=== PATIENT | female | born 1950 | race Two or more races ===

== ENCOUNTER 2019-08-17 22:55 | Inpatient (IN) | payer OTHER, MEDICARE ==
[~2019-08-17] VITALS: Ht 152.4 cm; Wt 68.9 kg
--- NOTE | 2019-08-18 00:55 | NUR ---
PT AAOX4. AMBULATORY WITH STEADY GAIT. PT C/O HIGH BPX3 DAYS. -CP, -SOB, -PAIN. PLACED ON MONITOR AND PULSE OX. NO ACUTE DISTRESS NOTED. MD AT BEDSIDE FOR EVAL.
[2019-08-18 01:16] LABS: BASOPHILS # (AUTO) 0.1 /CMM (0.0-0.2); BASOPHILS % (AUTO) 0.8 % (0.0-2.0); EOSINOPHILS % (AUTO) 2.1 % (0.0-6.0); HEMATOCRIT 41 % (33-45); HEMOGLOBIN 13.7 g/dL (11.5-14.8); LYMPHOCYTES # (AUTO) 1.3 /CMM (0.8-4.8); MEAN CORPUSCULAR HGB CONC 34 g/dl (31.0-36.0); MEAN CORPUSCULAR VOLUME 89 fL (82-100); MONOCYTES # (AUTO) 0.5 /CMM (0.1-1.30); MONOCYTES % (AUTO) 7.4 % (2.0-12.0); NEUTROPHILS # (AUTO) 4.4 /CMM (1.8-8.9); NEUTROPHILS % (AUTO) 69.7 % (43.0-81.0); PLATELET COUNT (AUTO) 227 /CMM (150-450); RED BLOOD CELL COUNT(AUTO) 4.61 MIL/uL (4.0-5.2); WHITE BLOOD COUNT (AUTO) 6.3 K/uL (4.3-11.0)
[2019-08-18 01:26] LABS: CALCIUM, SERUM 9.3 mg/dL (8.5-10.1); CREATININE 0.8 mg/dL (0.6-1.3); POTASSIUM 4.2 mmol/L (3.5-5.1)
[2019-08-18] MEDS ORDERED: ASPIRIN 325 MG TABLET ONE (01:48)
[2019-08-18] MEDS ORDERED: ASPIRIN 325 MG TABLET PO ONE (02:00)
--- NOTE | 2019-08-18 02:46 | NUR ---
PT RESTING COMFORTABLY. VSS.
[2019-08-18] MEDS ORDERED: hydrALAZINE HCL IV 20 MG VIAL ONE (02:48)
[2019-08-18] MEDS ORDERED: hydrALAZINE HCL IV 20 MG VIAL IV PRN (03:00)
[2019-08-18] MEDS ORDERED: OLME40TA12 PO (03:17)
[2019-08-18] MEDS ORDERED: ROSU5TAB PO (03:17)
[2019-08-18] MEDS ORDERED: AMLO10TA7 PO (03:17)
[2019-08-18] MEDS ORDERED: LEVO75TA7 PO (03:17)
--- NOTE | 2019-08-18 03:24 | NUR ---
REPORT GIVEN TO WILLIAM LOERA FOR GE
[2019-08-18] MEDS ORDERED: ONDANSETRON HCL/PF 4 MG/2 ML VIAL IVP PRN (03:30)
[2019-08-18] MEDS ORDERED: Z GUARD REMEDY 2 OZ OINT TP PRN (03:30)
[2019-08-18] MEDS ORDERED: hydrALAZINE HCL 25 MG TABLET PO PRN (03:30)
[2019-08-18] MEDS ORDERED: ACETAMINOPHEN 325 MG TABLET PO PRN (03:30)
--- NOTE | 2019-08-18 04:40 | NUR ---
PT TRANSFERED PER ACLS PROTOCOL.
[2019-08-18 04:50] VITALS: BP 147/96
--- NOTE | 2019-08-18 04:50 | NUR ---
RIM TURNING FINISHERCORPORATE RECRUITER NOTE RECEIVED PATIENT VIA GURNEY. AMBULATED TO BED, STEADY GAIT. A/OX4, CITIZEN OF [place] SPEAKING, ABLE TO MAKE BASIC NEEDS KNOWN. TOLERATING ROOM AIR. RESPIRATIONS ARE EVEN AND UNLABORED. NO S/S SOB NOTED. DENIES PAIN AT THIS TIME. EXTERNAL TELE MONITOR READS SR HR 75. IN NO APPARENT DISTRESS. IV ACCESS IN RFA #20 PATENT AND SALINE LOCKED, PATIENT STATES IT HURT, WILL INSERT NEW IV. INITIAL PHYSICAL ASSESSMENT COMPLETED AT THIS TIME. SKIN ASSESSMENT COMPLETED, SKIN IS INTACT. BELONGINGS LIST AND VITAL SIGNS TAKEN BY SCHOOL SPEECH LANGUAGE PATHOLOGIST. BED IS LOW AND LOCKED, HOB ELEVATED IN SEMI FOWLERS, SIDE RAILS UP X2. CALL LIGHT WITHIN REACH. FAMILY T BESIDE. WILL CONTINUE TO MONITOR.
[2019-08-18 06:02] VITALS: BP 147/96
[2019-08-18] MEDS: ENOXAPARIN SODIUM 40 MG/0.4 ML DISP.SYRIN SQ SCH (06:07)
[2019-08-18] MEDS: VALSARTAN 80 MG TABLET PO SCH ×2 (06:22→21:16)
--- NOTE | 2019-08-18 06:22 | NUR ---
SADDLE STITCH OPERATOR NOTE ADMINISTERED 0330 MEDICATION FOR 160MG VALSARTAN. LAST ADMINISTRATION D/T PATIENT DID NOT COME FROM ER UNTIL 449. WILL CONTINUE TO MONITOR.
--- NOTE | 2019-08-18 07:55 | NUR ---
CABLE REPAIRER OPENING NOTES RECEIVED PATIENT ON BED, A/O4 AND RESPONSIVE TO ALL STIMULI. DAUGHTER ON BEDSIDE. RESPIRATION EVEN AND NON LABORED WITH NO ACUTE RESPIRATORY DISTRESS, DENIES CHEST PAIN, SOB, LIGHTHEADEDNESS, FATIGUE. ABD SOFT AND NON DISTENDED WITH ACTIVE BOWEL SOUNDS, NO EDEMA NOTED. SKIN WARM TO TOUCH AND DRY. DENIES PAIN AND DISCOMFORT. IV SITE AT RIGHT HAND PATENT IN FLUSHING. TELE MONITOR SHOWS SINUS RHYTHM 75. ALL CONCERNS ATTENDED AT THIS TIME. CALL LIGHT WITHIN REACH. WILL CONTINUE TO EVALUATE CARE.
--- NOTE | 2019-08-18 07:58 | NUR ---
EMPLOYMENT LAW ATTORNEY CLOSING NOTE PATIENT IN BED. A/OX4, [place] SPEAKING, ABLE TO MAKE BASIC NEEDS KNOWN. TOLERATING ROOM AIR. RESPIRATIONS ARE EVEN AND UNLABORED. NO SOB NOTED. NO C/O PAIN. EXTERNAL TELE MONITOR READS SR HR 75. NO DISTRESS NOTED. IV ACCESS MAINTAINED IN RIGHT HAND #22 PATENT AND SALINE LOCKED. BED IS LOW AND LOCKED, HOB ELEVATED IN SEMI FOWLERS, SIDE RAILS UP X2. CALL LIGHT WITHIN REACH. FAMILY AT BEDSIDE. WILL ENDORSE TO NEXT SHIFT.
[2019-08-18 08:00] VITALS: BP 143/83
[2019-08-18] MEDS: ASPIRIN EC 81 MG TABLET.DR PO SCH (09:02)
[2019-08-18] MEDS: LEVOTHYROXINE SODIUM 75 MCG TABLET PO SCH (09:02)
[2019-08-18] MEDS: AMLODIPINE BESYLATE 10 MG TABLET PO SCH (09:03)
--- NOTE | 2019-08-18 09:03 | NUR ---
PIANO ACCOMPANIST NOTES PATIENT AND FAMILY REFUSED FOR CTA WITH 3D IMAGE STATED "WE WILL DO IT OUTPATIENT". DISCUSSED RISK AND BENEFITS OF THE PROCEDURE TO BE DONE IN THE HOSPITAL, PT AND DAUGHTER SUDARSHAN STILL REFUSED THE PROCEDURE. REPORT GIVEN TO DR. MARTINEZ AND AGREED WITH FAMILY'S REQUEST, TO CANCEL SCHEDULE FOR CTA. CALLED [facility] TO CANCEL CTA. CHARGE NURSE LUKASZ TO CALL IN[facility]. WILL MONITOR CARE
[2019-08-18] MEDS: METOPROLOL TARTRATE 50 MG TABLET PO SCH ×2 (12:55→17:31)
--- NOTE | 2019-08-18 14:29 | NUR ---
DIRECTOR AGENCY & STRATEGIC PARTNERSHIPS NOTES PT AGREED FOR CTA WITH 3D IMAGE. CONSENT SIGNED. ALEJANDRO LOERA ALSO EXPLAINED THE PROCEDURE IN [place] LANGUAGE FOR BETTER UNDERSTANDING. PT UNDERSTOOD THE PROCEDURE
[2019-08-18 16:00] VITALS: BP 150/81
--- NOTE | 2019-08-18 18:57 | NUR ---
M/S RN CLOSING NOTES PT A/O X4, RESPONSIVE TO ALL STIMULI. RESPIRATION EVEN AND NON LABORED WITH NO ACUTE RESPIRATORY DISTRESS. ABD SOFT AND NON DISTENDED WITH ACTIVE BOWEL SOUNDS, WITH BRP. DENIES PAIN AND DISCOMFORT. SKIN WARM TO TOUCH AND DRY. NO NEW OPEN SKIN BREAKDOWN. IV SITE AT RIGHT HAND AND LEFT AC PATENT IN FLUSHING. CALL LIGHT WITHIN REACHED. CTA SCHEDULED IN AM, CONSENT SIGNED. ALL CARE ATTENDED. ENDORSED PT CARE TO NEXT SHIFT
--- NOTE | 2019-08-18 19:25 | NUR ---
M/S RN CLOSING NOTES RECEIVED PATIENT A/O X4, RESPONSIVE TO ALL STIMULI. SON AT BEDSIDE DURING ROUNDS. RESPIRATION EVEN AND NON LABORED WITH NO ACUTE RESPIRATORY DISTRESS.ABDOMEN SOFT AND NON DISTENDED WITH ACTIVE BOWEL SOUNDS, WITH BRP. DENIES PAIN AND DISCOMFORT. SKIN WARM TO TOUCH AND DRY. NO NEW OPEN SKIN BREAKDOWN. IV SITE AT RIGHT HAND AND LEFT AC PATENT IN FLUSHING. CALL LIGHT WITHIN EASY REACHED. CTA SCHEDULED IN AM, CONSENT SIGNED. ALL NEEDS ANTICIPATED, KEEP CLEAN WARM AND COMFORTABLE. WILL CONTINUE TO MONITOR ACCORDINGLY.
[2019-08-18 20:00] VITALS: BP 140/74
[2019-08-18] MEDS ORDERED: ATORVASTATIN 40 MG TABLET PO SCH (22:00)
[2019-08-19] MEDS: METOPROLOL TARTRATE 50 MG TABLET PO SCH ×4 (00:09→17:31)
[2019-08-19] MEDS: ENOXAPARIN SODIUM 40 MG/0.4 ML DISP.SYRIN SQ SCH (05:41)
--- NOTE | 2019-08-19 07:04 | NUR ---
RN NOTES ALL NEEDS ATTENDED AND MET ABLE TO REST AND SLEPT AT INTERVALS. SAFETY MEASURES IN PLACE, CALL LIGHT WITH IN EASY REACH. WILL ENDORSE TO AM NURSE FOR CONTINUITY OF CARE.
[2019-08-19 07:29] LABS: BASOPHILS % (AUTO) 0.4 % (0.0-2.0); EOSINOPHILS % (AUTO) 2.2 % (0.0-6.0); HEMATOCRIT 45 % (33-45); HEMOGLOBIN 14.8 g/dL (11.5-14.8); LYMPHOCYTES # (AUTO) 1.6 /CMM (0.8-4.8); LYMPHOCYTES % (AUTO) 21.7 % (20.0-44.0); MEAN CORPUSCULAR HGB CONC 33 g/dl (31.0-36.0); MEAN CORPUSCULAR VOLUME 88 fL (82-100); MONOCYTES # (AUTO) 0.5 /CMM (0.1-1.30); MONOCYTES % (AUTO) 7.1 % (2.0-12.0); NEUTROPHILS # (AUTO) 5.1 /CMM (1.8-8.9); NEUTROPHILS % (AUTO) 68.6 % (43.0-81.0); PLATELET COUNT (AUTO) 261 /CMM (150-450); WHITE BLOOD COUNT (AUTO) 7.4 K/uL (4.3-11.0)
[2019-08-19 07:40] LABS: CREATININE 0.7 mg/dL (0.6-1.3); MAGNESIUM 2.2 mg/dL (1.8-2.4); PHOSPHORUS 3.6 mg/dL (2.5-4.9)
[2019-08-19 08:00] VITALS: BP 132/82
--- NOTE | 2019-08-19 08:00 | NUR ---
RN NOTES RECEIVED PATIENT IN THE BED A/O X4, NO ACUTE RESPIRATORY DISTRESS, V/S STABLE, REFUSED PAIN, AMBULATORY SELF CARE. PATIENT NPO SCHEDULED FOR CTA. PATIENT STABLE, ADMINISTERED SCHEDULED MEDICATION. IV ACCESS ON RIGHT HAND INTACT SL .PATIENT AMBULATORY SELF CARE. SAFETY PRECAUTION MAINTAINED ALL THE TIME.
[2019-08-19] MEDS: AMLODIPINE BESYLATE 10 MG TABLET PO SCH (09:26)
[2019-08-19] MEDS: VALSARTAN 80 MG TABLET PO SCH ×2 (09:27→21:15)
[2019-08-19] MEDS: ASPIRIN EC 81 MG TABLET.DR PO SCH (09:27)
[2019-08-19] MEDS: LEVOTHYROXINE SODIUM 75 MCG TABLET PO SCH (09:27)
--- NOTE | 2019-08-19 13:00 | NUR ---
RN NOTES PER BUSINESS AREA MANAGER PATIENT ABLE TO EAT NOW, AND LATER AFTERNOON PATIENT SCHEDULED CTA.
[2019-08-19 16:00] VITALS: BP 142/77
[2019-08-19] MEDS ORDERED: IOHEXOL-350 100 ML VIAL IV ONE (18:28)
[2019-08-19] MEDS ORDERED: IV NS 0.9% 250 ML IV ONE (18:28)
--- NOTE | 2019-08-19 18:30 | NUR ---
RN NOTES PATIENT STABLE, ADMINISTERED SCHEDULED MEDICATION, V/S STABLE, AND PATIENT TAKEN TO THE CTA AT THIS TIME. ENDORSED ONCOMING NURSE FOLLOW PLAN OF CARE.
[2019-08-19] MEDS ORDERED: METOPROLOL TARTRATE INJ 5 MG/5 ML AMPUL ONE ×3 (18:39→19:00)
[2019-08-19] MEDS ORDERED: NITROGLYCERIN 0.4 MG/TAB BOTTLE ONE (18:39)
[2019-08-19] MEDS: METOPROLOL TARTRATE INJ 5 MG/5 ML AMPUL IVP PRN ×5 (18:41→19:01)
[2019-08-19] MEDS ORDERED: NITROGLYCERIN 0.4 MG/TAB BOTTLE SL ONE (19:00)
--- NOTE | 2019-08-19 19:55 | NUR ---
RN NOTES PATIENT CAME BACK FROM CTA. WILL FOLLOW UP FOR THE RESULT. KEEP PATIENT COMFORTABLE, SAFETY MEASURES IN PLACE, BREATHING EVEN AND UNLABORED, NO SIGNS OF ACUTE DISTRESS NOTED, CALL LIGHT WITHIN EASY REACH, FAMILY IS AT BEDSIDE AT THIS TIME. WILL CONTINUE TO MONITOR PER AM NURSE REPORTED, PATIENT MAY GO HOME TONIGHT ONCE CLEARED FROM CTA. ALL NEEDS ANTICIPATED. WILL MONITOR ACCORDINGLY.
[2019-08-19 20:26] VITALS: BP 137/73
[2019-08-19 21:15] VITALS: BP 137/73
--- NOTE | 2019-08-19 21:17 | NUR ---
RN NOTES PATIENT REQUESTING TO BE DISCHARGE AND GO HOME AFTER CTA, CALLED AND INFORMED DR. ALY ADAMS AT [phone]. AWAITING FOR RESPONSE.
[2019-08-19] MEDS ORDERED: ASPI-1152 PO (21:31)
[2019-08-19] MEDS ORDERED: VALS80TA2 PO (21:31)
[2019-08-19] MEDS ORDERED: METO50TA16 PO (21:31)
--- NOTE | 2019-08-19 21:44 | NUR ---
RN NOTES PATIENT WILL BE DISCHARGE TONIGHT PER LLOYD MORENO NP
--- NOTE | 2019-08-19 22:39 | NUR ---
PROCESS TREATER NOTES ALL NEEDS ATTENDED AND MET. BELONGING LISTS ACCOUNTED FOR, DISCHARGE INSTRUCTIONS GIVEN, HEALTH EDUCATION GIVEN. LEFT THE UNIT AT 2235 08/19/19. IN STABLE CONDITION. CHARGE NURSE LUZ MARIA SIDHU AWARE OF DISCHARGE.
== END 2019-08-19 22:35 | disposition home or self-care (01) | DRG 282 ==
LOC: ER 22:57 → TELE 08-18 02:39 → EDBD 08-18 02:39 → TELE 08-18 04:14 → MED 08-18 09:37
PROVIDERS: ADMIT Nurse Practitioner Acute Care; ATTEND Nurse Practitioner Acute Care
DX: I16.0 Hypertensive urgency (principal); I21.A1 Myocardial infarction type 2; E03.9 Hypothyroidism, unspecified; E66.9 Obesity, unspecified; I10 Essential (primary) hypertension; F17.210 Nicotine dependence, cigarettes, uncomplicated; E78.5 Hyperlipidemia, unspecified; M19.90 Unspecified osteoarthritis, unspecified site; Z68.29 Body mass index [BMI] 29.0-29.9, adult; Z96.643 Presence of artificial hip joint, bilateral; Z71.6 Tobacco abuse counseling
CPT/HCPCS: 36415; 71045-TC; 75574; 80048-TC; 80061-TC; 83735-TC; 84100-TC; 84484-TC; 85025-TC; 87081-TC; 93307-TC; 93880-TC; G0378; J0360; J1650; J3490; J7050; Q9967

== ENCOUNTER 2021-02-27 22:16 | Emergency (ER) | payer MEDICARE, OTHER ==
[~2021-02-27] VITALS: Ht 154.9 cm; Wt 56.7 kg
[~2021-02-27 22:16] MED LIST: AMLO-213 PO; ASPI-1420 PO; LEVO75TA7 PO; METO50TA16 PO; ROSU5TAB PO; VALS80TA2 PO
--- NOTE | 2021-02-27 22:35 | NUR ---
PATIENT BIBSELF C/O BLE EDEMA SINCE 01/22/21. PATIENT NOTICED AFTER TRAVELING FOR AN EXTENDED PERIOD. PATIENT IS A/OX 4, RR EVEN AND UNLABORED, NO SOB NOTED. PATIENT CONNECTED TO MONITOR.
[2021-02-27 23:54] LABS: BASOPHILS % (AUTO) 0.4 % (0.0-2.0); EOSINOPHILS % (AUTO) 1.2 % (0.0-6.0); HEMATOCRIT 38 % (33-45); HEMOGLOBIN 12.8 g/dL (11.5-14.8); LYMPHOCYTES # (AUTO) 1.3 K/uL (0.8-4.8); LYMPHOCYTES % (AUTO) 20.8 % (20.0-44.0); MEAN CORPUSCULAR HGB CONC 34 g/dl (31.0-36.0); MEAN CORPUSCULAR VOLUME 89 fL (82-100); MONOCYTES # (AUTO) 0.4 K/uL (0.1-1.30); MONOCYTES % (AUTO) 7.2 % (2.0-12.0); NEUTROPHILS # (AUTO) 4.4 K/uL (1.8-8.9); NEUTROPHILS % (AUTO) 70.4 % (43.0-81.0); PLATELET COUNT (AUTO) 219 K/uL (150-450); RED BLOOD CELL COUNT(AUTO) 4.26 MIL/uL (4.0-5.2); WHITE BLOOD COUNT (AUTO) 6.2 K/uL (4.3-11.0)
[2021-02-28 00:02] LABS: CREATININE 0.8 mg/dL (0.6-1.3); POTASSIUM 3.6 mmol/L (3.5-5.1)
[2021-02-28 00:14] LABS: ALBUMIN 3.7 g/dL (3.4-5.0); BILIRUBIN,DIRECT 0.1 mg/dL (0.0-0.2); BILIRUBIN,TOTAL 0.5 mg/dL (0.2-1.0); TOTAL PROTEIN, SERUM 7.6 g/dL (6.4-8.2)
[2021-02-28 01:35] VITALS: BP 141/78
--- NOTE | 2021-02-28 01:35 | NUR ---
Patient discharged to home in stable condition. Written and verbal after care instructions given. Patient verbalizes understanding of instruction.
== END 2021-02-28 01:36 | disposition home or self-care (01) ==
LOC: ER 22:20
DX: R60.0 Localized edema (principal); I10 Essential (primary) hypertension; E78.5 Hyperlipidemia, unspecified; E03.9 Hypothyroidism, unspecified; Z96.643 Presence of artificial hip joint, bilateral; Z79.82 Long term (current) use of aspirin; Z79.899 Other long term (current) drug therapy
CPT/HCPCS: 36415; 71045-TC; 80048-TC; 80076-TC; 83880; 84484-TC; 85025-TC; 93970-TC